=== PATIENT | male | born 1945 | race Caucasian/White ===

== ENCOUNTER → 2019-04-29 | Day surgery (SDC) | payer MEDICARE ==
[~2019-04-29] MED LIST: FENTANYL CITRATE/PF 100MCG/2 ML INJ ONE; IBUPROFEN400 MG PO; MIDAZOLAM HCL 2 MG/2 ML VIAL ONE; OR PHACO EYE KIT ONE; PREOP PHACO EYE KIT ONE
--- OUTSIDE RECORDS SUMMARY | 2019-04-29 07:35 | XMS REPORT | Clinical Summary ---
Author Author [facility] Organization [facility] Address Unknown Phone Unavailable Care Team Providers Care Rn Bone Marrow Transplant Name Role Phone Feliciano Jordan MD PCP Allergies No Known Allergies Medications End Date Status Medication Sig Dispensed Refills Start Date Active ibuprofen (ADVIL,MOTRIN) Take 200 mg 0 200 MG tablet by mouth every 6 (six) hours as needed for mild pain. 04/15/2020 Active rOPINIRole (REQUIP) 0.25 Take 1 tablet 30 tablet 3 201 MG tabletIndications: RLS (0.25 mg 9 (restless legs syndrome) total) by mouth nightly. Start 1 tab PO qhs x 1 week. Then increase to 2 tab PO qhs. Active Problems Problem Noted Date Cataract Compression fracture of L3 lumbar vertebra with routine healing Encounters Care Team Description Date Type Specialty Feliciano Jordan MD Senile cataract of right eye, unspecified age-related cataract type (Primary Dx); Pre-op exam; Heart murmur, systolic; Irregular heart rhythm; RLS (restless legs syndrome) 04/16/2019 Office Visit Family Medicine after 04/28/2018 Family History Medical History Relation Name Comments No Known Problems Father No Known Problems Mother Relation Name Status Comments Father Mother Social History Date Tobacco Use Types Packs/Day Years Used Quit: 04/16/1979 Former Smoker Smokeless Tobacco: Never Used Tobacco Cessation: Counseling Given: No Drinks/Week oz/Week Comments Alcohol Use Yes Alcohol Habits Answer Date Recorded How often do you have a drink containing alcohol? 2-4 times a month 04/16/2019 How many drinks containing alcohol do you have on Not asked a typical day when you are drinking? How often do you have six or more drinks on one Not asked occasion? Sex Assigned at Date Recorded Not on file Industry Job Start Date Occupation Not on file Not on file Not on file Travel End Travel History Travel Start No recent travel history available. Last Filed Vital Signs Reading Time Taken Comments Vital Sign 150/74 04/16/2019 10:34 AM CDT Blood Pressure 68 04/16/2019 10:34 AM CDT Pulse 36.9 C (98.5 F) 04/16/2019 10:34 AM CDT Temperature - - Respiratory Rate 98% 04/16/2019 10:34 AM CDT Oxygen Saturation - - Inhaled Oxygen Concentration 112 kg (246 lb) 04/16/2019 10:34 AM CDT Weight 174 cm (5' 8.5") 04/16/2019 10:34 AM CDT Height 36.86 04/16/2019 10:34 AM CDT Body Mass Index Plan of Treatment Health Maintenance Due Date Last Done Comments COLONOSCOPY SCREENING 1994 SHINGLES VACCINES (#1) 1994 65+ PNEUMOCOCCAL VACCINE 2009 (1 of 2 - PCV13) INFLUENZA VACCINE 04/10/2019 Procedures Comments Procedure Name Priority Date/Time Associated Diagnosis CBC WITH PLATELET AND Routine 04/16/2019 Pre-op exam DIFFERENTIAL 11:43 AM CDT after 04/28/2018 Results * CBC with platelet and differential (04/16/2019 11:43 AM CDT) WBC 8.7 3.8 - 10.8 [facility] [place] RBC 4.94 4.20 - 5.80 [facility] [place] HGB 14.3 13.2 - 17.1 g/dL [facility] [place] HCT 42.8 38.5 - 50.0 % [facility] [place] MCV 86.6 80.0 - 100.0 fL [facility] [place] MCH 28.9 27.0 - 33.0 pg [facility] [place] MCHC 33.4 32.0 - 36.0 g/dL [facility] [place] RDW 13.3 11.0 - 15.0 % [facility] [place] Platelet count 215 140 - 400 [facility] [place] MPV 12.0 7.5 - 12.5 fL [facility] [place] Neutrophils, 5,316 1,500 - 7,800 [facility] [place] Lymphocytes, 2,314 850 - 3,900 cells/uL [facility] [place] Monocytes, 722 200 - 950 cells/uL [facility] [place] Eosinophils, 278 15 - 500 cells/uL [facility] [place] Basophils, 70 0 - 200 cells/uL [facility] [place] Neutrophils 61.1 % [facility] [place] Lymphocytes 26.6 % [facility] [place] Monocytes 8.3 % [facility] [place] Eosinophils 3.2 % [facility] [place] Basophils + RC 0.8 % [facility] [place] Specimen Blood Resulting Agency Comment Performing Organization Information: Site ID: [id number] Name: [facility] Address: [address] [place] [address] Director: Omar Palacios Performing Organization Address City/State/Zipcode Phone Number [facility] [facility] [place] [address] [place], [place] [id number] after 04/28/2018 Insurance Type Payer Benefit Subscriber ID Effective Phone Address Plan / Dates Group Medicare MEDICARE MEDICARE xxxxxxxxxxx 2009- [place], PART [place] Present [place] Advance Directives For more information, please contact: [phone] Patient Manager Laboratory Explanation Type Date Recorded Advance Directives, Living Will and Medical Power of Caustic Mixer
[2019-04-29 11:15] VITALS: BP 155/96
== END | disposition home or self-care (01) ==
LOC: OR 07:33
PROVIDERS: ATTEND Ophthalmology
DX: H25.11 Age-related nuclear cataract, right eye (principal); I49.3 Ventricular premature depolarization; Z87.891 Personal history of nicotine dependence
CPT/HCPCS: 66984; J2250; J3010; V2632

== ENCOUNTER → 2019-05-13 | Day surgery (SDC) | payer MEDICARE ==
--- OUTSIDE RECORDS SUMMARY | 2019-05-13 08:59 | XMS REPORT | Clinical Summary ---
Author Author [facility] Organization [facility] Address Unknown Phone Unavailable Care Team Providers Care Floor Sweeper Name Role Phone Feliciano Jordan MD PCP [...] syndrome) 04/16/2019 Office Visit Family Medicine after 05/12/2018 Family History Medical History Relation Name Comments [...] Pre-op exam DIFFERENTIAL 11:43 AM CDT after 05/12/2018 Results * CBC with platelet and differential (04/16/2019 11:43 AM CDT) WBC 8.7 3.8 - 10.8 [facility] [place] RBC 4.94 4.20 - 5.80 [facility] [place] HGB 14.3 13.2 - 17.1 g/dL [facility] [place] HCT 42.8 38.5 - 50.0 % [facility] [place] MCV 86.6 80.0 - 100.0 fL [facility] [place] MCH 28.9 27.0 - 33.0 pg [facility] [place] MCHC 33.4 32.0 - 36.0 g/dL [facility] [place] RDW 13.3 11.0 - 15.0 % [facility] [place] Platelet count 215 140 - 400 [facility] [place] MPV 12.0 7.5 - 12.5 fL [facility] [place] Neutrophils, 5,316 1,500 - 7,800 [facility] cells/[facility] [place] Lymphocytes, 2,314 850 - 3,900 cells/uL [facility] [place] Monocytes, 722 200 - 950 cells/uL [facility] [place] Eosinophils, 278 15 - 500 cells/uL [facility] [place] Basophils, 70 0 - 200 cells/uL [facility] [place] Neutrophils 61.1 % [facility] [place] Lymphocytes 26.6 % [facility] [place] Monocytes 8.3 % [facility] [place] Eosinophils 3.2 % [facility] [place] Basophils + RC 0.8 % [facility] [place] Specimen Blood Resulting Agency Comment Performing Organization Information: Site ID: [id number] Name: [facility] Address: [address] [place] [address] Director: Omar Palacios Performing Organization Address City/State/Zipcode Phone Number [place] [facility] [place] [address] [place], [place] [id number] after 05/12/2018 Insurance Type Payer Benefit Subscriber ID Effective Phone Address Plan / Dates Group Medicare MEDICARE MEDICARE xxxxxxxxxxx 2009- [place], PART [place] Present [place] Advance Directives For more information, please contact: [phone] 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
[2019-05-13 12:55] VITALS: BP 151/87
== END | disposition home or self-care (01) ==
LOC: OR 08:56
PROVIDERS: ATTEND Ophthalmology
DX: H25.12 Age-related nuclear cataract, left eye (principal); E66.9 Obesity, unspecified; I49.3 Ventricular premature depolarization; Z87.891 Personal history of nicotine dependence
CPT/HCPCS: 66984; J2250; J3010; V2632